=== PATIENT | female | born 1980 | race Caucasian/White ===

== ENCOUNTER 2017-01-14 10:33 | Emergency (ER) | payer BC, OTHER ==
--- NOTE | ~2017-01-14 | EKG ---
PATIENT: MELVIN BEE UNIT #: [id number] Ventricular Rate: 80 BPM Atrial Rate: 80 BPM P-R Interval: 118 ms QRS Duration: 94 ms Q-T Interval: 360 ms QTC Calculation(Bezet): 415 ms P [place]: 24 degrees Calculated R [place]: 61 degrees Calculated T [place]: 35 degrees Diagnosis Line: Normal sinus rhythm Diagnosis Line: Normal ECG Diagnosis Line: Diagnosis Line: Confirmed by OBI MALHOTRA MD ([id number]) on 01/14/2017 Diagnosis Line: 10:43:21 PM INTERPRETING MD: MARYA GURROLA
--- NOTE | ~2017-01-14 | CR72 ---
[facility] A Service of [facility] RADIOLOGY TEXT RESULTS PATIENT: MELVIN BEE LOCATION: [facility] : 76 UNIT #: [id number] AGE: [address]: Obed Cornelius MD SEX: F ORDER DR: [id number] [facility] [address] [place], [place] [address] [id number] E MR#: [id number] Acc #: [id number] NAME: MELVIN BEE : 1980 SEX: F STUDY DATE/TIME: 01/14/2017 10:40 UNIT: [facility] ROOM: STUDY DESCRIPTION: CR Chest Single View Portable Attending Physician: Obed Cornelius M.D. Ordering Physician: Obed Cornelius M.D. Primary Care Physician: Sinai Mcdermott M.D. MEDICAL IMAGING REPORT This report is preliminary unless electronic signature is present EXAM Portable chest, 01/14/2017. HISTORY 36-year-old woman with chest pain, vomiting, palpitations. Pain, left arm. Patient indicates smoking history. COMPARISON Portable chest, 01/11/2015. FINDINGS AP upright portable chest demonstrates normal stable cardiac size and configuration. Hilar structures and mediastinal contours are preserved. Bilateral lungs are clear. Costophrenic angles are clear. Bony thorax is intact. IMPRESSION Negative and stable chest. Dictated by... Felipe Goyal M.D. THIS IS AN ELECTRONICALLY VERIFIED REPORT Felipe Goyal M.D. at 01/14/2017 12:57 PM Tika TD: 01/14/2017 12:32 JOB #: [id number] MEDICAL IMAGING REPORT Page 1 of 1 COPY
[2017-01-14 10:05] LABS: BASOPHIL# 0.1 X10e3 (0-0.3); EOSINOPHIL# 0.4 X10e3 (0-0.7); LYMPHOCYTE# 3.3 X10e3 (1.0-3.5); LYMPHOCYTE% 28.3 % (17.0-45.0); MEAN CELL VOLUME 92.5 FL (83-96); MEAN CORPUSCULAR HEMOGLOBIN 31.4 PG (28-34); MEAN CORPUSCULAR HGB CONC 33.9 g/dL (30-36); MEAN PLATELET VOLUME 10.3 FL (6.5-11.5); MONOCYTE% 8.2 % (3.0-12.0); NEUTROPHIL# 6.9 X10e3 (1.5-7.1); NEUTROPHIL% 59.5 % (40-75); PLATELET COUNT 238 X10e3 (140-420); RED BLOOD COUNT 4.76 X10e (3.90-5.30); RED CELL DISTRIBUTION WIDTH 12.6 % (11.0-15.5); WHITE BLOOD COUNT 11.6 X10e3 (4.0-10.5)
[2017-01-14 10:09] LABS: DIFF IND NO
[2017-01-14 10:20] LABS: POC - CKMB 1.7 ng/mL (0.0-7.9); POC - TROPONIN <0.05 ng/mL (<=0.05)
[2017-01-14 10:33] LABS: ALBUMIN SERUM 3.8 g/dL (3.5-5.0); ALKALINE PHOSPHATASE 69 U/L (32-92); ALT (SGPT) 13 U/L (10-40); AST (SGOT) 15 U/L (10-42); BILIRUBIN,TOTAL 0.4 mg/dL (0.2-2.0); BLOOD UREA NITROGEN 11 mg/dL (9-23); BUN/CREATININE RATIO 18.33; CALCIUM SERUM 9.1 mg/dL (8.4-10.2); CARBON DIOXIDE 25 mmol/L (22-31); CHLORIDE 105 mmol/L (100-111); CREATININE SERUM 0.6 mg/dL (0.6-1.4); GLOM FILT RATE Estimated 115.6 mL/min (>60); GLUCOSE FASTING 118 mg/dL (70-110); POTASSIUM 4.1 mmol/L (3.5-5.1); PROTEIN TOTAL SERUM 6.8 g/dL (6.0-8.3); SODIUM 139 mmol/L (135-145)
[~2017-01-14 10:33] MED LIST: LO/OVRAL-281 TAB PO; NAPROSYN500 MG PO
[2017-01-14 10:35] LABS: BILIRUBIN, DIRECT <0.1 mg/dL (0.0-0.2); BILIRUBIN,INDIRECT 0.3 mg/dL (0.0-0.9)
[2017-01-14 11:43] LABS: POC - CKMB 1.6 ng/mL (0.0-7.9); POC - TROPONIN <0.05 ng/mL (<=0.05)
== END 2017-01-14 12:05 | disposition home or self-care (01) ==
LOC: CED 10:33
PROVIDERS: Emergency Medicine
DX: M79.602 Pain in left arm (principal)
CPT/HCPCS: 36415; 71010; 80048; 80076; 82553; 84484; 84703; 85025; 93005; 99284